=== PATIENT | female | born 1930 | race African-American/Black ===

== ENCOUNTER 2016-08-22 17:35 | Emergency (ER) | payer OTHER ==
[~2016-08-22] VITALS: Ht 157.5 cm; Wt 65.0 kg
[~2016-08-22 17:35] MED LIST: ASPI325T PO; CLOP75TA PO; FURO20TA PO; LOVA20TA PO; MULT1TAB84 PO; PANT40TA3 PO; PERC5TAB12 PO; POTA-243 PO; TRAM50TA PO; TRIA37.53 PO; VERA1TAB17 PO; VITA1000 PO
[2016-08-22 17:38] VITALS: BP 172/74; PULSE 75; RESP 14; TEMP 97.9; O2SAT 91
--- NOTE | 2016-08-22 19:35 | PD ---
HPI Chief Complaint: Pain: Acute or Chronic Time Seen by Provider: 19:35 Travel History International Travel<30 days: No Contact w/Intl Traveler<30days: No Traveled to known affect area: No History of Present Illness HPI 86 year-old female's history of CAD, hypertension, diabetes, left lower extremity femoropopliteal bypass, presents to emergency department for evaluation of left lower extremity pain. Patient states the leg has been swelling since the procedure but recently has gotten worse, warm, and painful. States that she contacted her surgeon who recommended placing an Marcus wrap. Patient states that it has not helped with the pain. She denies any fever states that she has felt chilled. No nausea, vomiting, diarrhea. No chest or tightness. She has no other symptoms to report. PFSH Past Medical History Hx Anticoagulant Therapy: Yes (WARFARIN) Cancer: No Coronary Artery Disease: Yes Diabetes: Yes (BORDERLINE DIABETIC) Diminished Hearing: No Endocrine: Yes (BORDERLINE DIABETIC) Gastrointestinal Disorders: Yes (GERD) Genitourinary: Yes (OVERACTIVE BLADDER) Hepatitis: No Hypertension: Yes Immune Disorder: No Psychiatric: No Respiratory: Yes (COPD) Menopausal: Yes Past Surgical History Abdominal Surgery: Yes AICD: No Cardiac Surgery: Yes (FEM POP, LLE BYPASS) Ear Surgery: No Endocrine Surgery: No Eye Surgery: Yes (CATARACT LEFT EYE) Genitourinary Surgery: No Gynecologic Surgery: Yes (HYSTERECTOMY) Joint Replacement: No Oral Surgery: No Pacemaker: No Social History Alcohol Use: No Tobacco Use: No Substance Use: No Allergies-Medications (Allergen,Severity, Reaction): Coded Allergies: No Known Allergies (Unverified , 08/22/16) Reported Meds & Prescriptions Reported Meds & Active Scripts Active Percocet (Oxycodone-Acetaminophen) 5-325 mg Tab 1 Tab PO Q6H PRN Reported Clopidogrel (Clopidogrel Bisulfate) 75 Mg Tab 75 Mg PO DAILY Pantoprazole (Pantoprazole Sodium) 40 Mg Tab 40 Mg PO DAILY Vitamin D-1000 (Cholecalciferol) 1,000 Unit Tab 1,000 Units PO DAILY Multivitamin Adults (Multiple Vitamins W/ Minerals) 1 Tab 1 Tab PO DAILY Aspirin 325 Mg Tab 325 Mg PO DAILY Percocet (Oxycodone-Acetaminophen) 5-325 mg Tab 1 Tab PO Q4H PRN Lovastatin 20 Mg Tab 20 Mg PO DAILY Furosemide 20 Mg Tab 20 Mg PO DAILY Triamterene-Hydrochlorothiazide 37.5-25 Mg Cap 1 Cap PO DAILY Klor-Con 10 (Potassium Chloride) 10 Meq Tab 10 Meq PO DAILY Verapamil ER 24 HR (Verapamil HCl) 240 Mg Tab 240 Mg PO HS Tramadol (Tramadol HCl) 50 Mg Tab 50 Mg PO BID PRN Review of Systems Except as stated in HPI: all other systems reviewed are Neg Physical Exam Narrative GENERAL: Well-nourished female patient, in no acute distress SKIN: Warm and dry. HEAD: Atraumatic. Normocephalic. EYES: Pupils equal and round. No scleral icterus. No injection or drainage. ENT: No nasal bleeding or discharge. Mucous membranes pink and moist. NECK: Trachea midline. No JVD. CARDIOVASCULAR: Regular rate and rhythm. No murmur appreciated. RESPIRATORY: No accessory muscle use. Clear to auscultation. Breath sounds equal bilaterally. GASTROINTESTINAL: Abdomen soft, non-tender, nondistended. Hepatic and splenic margins not palpable. MUSCULOSKELETAL: No obvious deformities. No clubbing. No cyanosis. Marcus wrap in place from proximal to the left knee all the way down to the distal foot. Toes are cool to touch of the left lower extremity. Distal pulses palpable. NEUROLOGICAL: Awake and alert. No obvious cranial nerve deficits. Motor grossly within normal limits. Normal speech. PSYCHIATRIC: Appropriate mood and affect; insight and judgment normal. Data Data Last Documented VS Vital Signs Date Time Temp Pulse Resp B/P Pulse Ox O2 Delivery O2 Flow Rate FiO2 08/22/16 22:24 76 18 137/81 95 Room Air 08/22/16 17:38 97.9 Orders Coag Profile (08/22/16 19:33) Complete Blood Count With Diff (08/22/16 19:33) Basic Metabolic Panel (Bmp) (08/22/16 19:33) Labs Laboratory Tests Test 08/22/16 19:35 White Blood Count 9.8 TH/MM3 Red Blood Count 4.57 MIL/MM3 Hemoglobin 12.1 GM/DL Hematocrit 37.7 % Mean Corpuscular Volume 82.4 FL Mean Corpuscular Hemoglobin 26.6 PG Mean Corpuscular Hemoglobin 32.2 % Concent Red Cell Distribution Width 14.8 % Platelet Count 500 TH/MM3 Mean Platelet Volume 7.5 FL Neutrophils (%) (Auto) 65.5 % Lymphocytes (%) (Auto) 23.6 % Monocytes (%) (Auto) 8.5 % Eosinophils (%) (Auto) 1.9 % Basophils (%) (Auto) 0.5 % Neutrophils # (Auto) 6.4 TH/MM3 Lymphocytes # (Auto) 2.3 TH/MM3 Monocytes # (Auto) 0.8 TH/MM3 Eosinophils # (Auto) 0.2 TH/MM3 Basophils # (Auto) 0.0 TH/MM3 CBC Comment DIFF FINAL Differential Comment Prothrombin Time 31.2 SEC Prothromb Time International 2.7 RATIO Ratio Activated Partial 47.2 SEC Thromboplast Time Sodium Level 137 MEQ/L Potassium Level 3.3 MEQ/L Chloride Level 99 MEQ/L Carbon Dioxide Level 25.4 MEQ/L Anion Gap 13 MEQ/L Blood Urea Nitrogen 32 MG/DL Creatinine 1.98 MG/DL Estimat Glomerular Filtration 29 ML/MIN Rate Random Glucose 131 MG/DL Calcium Level 10.0 MG/DL MDM Medical Decision Making Medical Screen Exam Complete: Yes Emergency Medical Condition: Yes Medical Record Reviewed: Yes Differential Diagnosis DVT versus PAD versus occlusive disease versus cellulitis versus lymphedema Narrative Course 86 year-old female presents to the emergency department for evaluation. Patient appears without distress. Marcus wrap is in place on the left lower extremity. Workup was initiated in triage, once a medical bed becomes available , patient will be transferred and care assumed by the provider. Condition: Stable Mena Loya Aug 22, 2016 19:35
[2016-08-22 20:15] LABS: AUTOMATED NEUTROPHIL # 6.4 TH/MM3 (1.8-7.7); BASOPHIL % 0.5 % (0.0-2.0); EOSINOPHIL # 0.2 TH/MM3 (0-0.4); EOSINOPHIL % 1.9 % (0.0-4.0); HEMATOCRIT 37.7 % (35.0-46.0); HEMO FLAGS DIFF FINAL; LYMPH % 23.6 % (9.0-44.0); LYMPHOCYTE # 2.3 TH/MM3 (1.0-4.8); MEAN CELL VOLUME 82.4 FL (80.0-100.0); MEAN CORPUSCULAR HEMOGLOBIN 26.6 PG (27.0-34.0); MEAN CORPUSCULAR HGB CONC 32.2 % (32.0-36.0); MONO % 8.5 % (0.0-8.0); NEUT % 65.5 % (16.0-70.0); PLATELET COUNT 500 TH/MM3 (150-450); RED BLOOD COUNT 4.57 MIL/MM3 (4.00-5.30); RED CELL DISTRIBUTION WIDTH 14.8 % (11.6-17.2); WHITE BLOOD COUNT 9.8 TH/MM3 (4.0-11.0)
[2016-08-22 20:39] LABS: APTT (PATIENT) 47.2 SEC (24.3-30.1); INTERNATIONAL NORMALIZED RATIO 2.7 RATIO; PROTHROMBIN TIME - PATIENT 31.2 SEC (9.8-11.6)
[2016-08-22 20:40] LABS: BICARBONATE 25.4 MEQ/L (21.0-32.0); POTASSIUM 3.3 MEQ/L (3.5-5.1)
[2016-08-22 22:24] VITALS: BP 137/81; PULSE 76; RESP 18; O2SAT 95
--- NOTE | 2016-08-22 22:38 | PD ---
Physical Exam Narrative Patient initially was seen in triage. Please see previous providers secondary for full H&P. Briefly this is a patient comes back to emergency department complaining of increasing pain in her left lower extremity over the past 10 days. Patient states she was seen in the emergency department previously for same was found out that her femoropopliteal bypass rejected. Patient states she was fine after being discharged from the ER previously however over the past 10 days has been having increased pain and swelling from her knee down. Patient states that she only takes approximately a half for tramadol time as well as half a Percocet when needed. Patient is also been using Marcus wrap as instructed by her vascular surgeon that help some. Patient denies any known trauma. Pain is worse with palpation and walking. GENERAL: Well-developed, overly nourished, in no acute distress, and non-ill appearing. SKIN: Warm and dry. Well-healed surgical site wound noted left lower extremity medial aspect of the calf shows no signs of infection. It is afebrile, nontender, without crepitus. HEAD: Atraumatic. Normocephalic. EYES: Pupils equal and round. EOMI. No scleral icterus. No injection or drainage. ENT: No nasal bleeding or discharge. Mucous membranes pink and moist. NECK: Trachea midline. Supple. No nuclear rigidity. CARDIOVASCULAR: Capillary refill less than 2 seconds bilateral lower extremities. 1+ pulses left dorsal and 2+ right dorsal pulses. RESPIRATORY: No accessory muscle use. No respiratory distress. MUSCULOSKELETAL: No obvious deformities. No clubbing. No cyanosis. 1+ nonpitting edema left lower extremity distal to the knee. Full range of motion. Patient reports tenderness to palpation left lower extremity. Patient' s strength is 5 out of 5 and equal bilateral lower extremities dorsal and plantar flexion. Sensation intact over first web space bilateral lower extremities. NEUROLOGICAL: Awake and alert. No obvious cranial nerve deficits. Motor grossly within normal limits. Normal speech. PSYCHIATRIC: Appropriate mood and affect; insight and judgment normal. Data Data Last Documented VS Vital Signs Date Time Temp Pulse Resp B/P Pulse Ox O2 Delivery O2 Flow Rate FiO2 08/22/16 22:24 76 18 137/81 95 Room Air 08/22/16 17:38 97.9 Orders Coag Profile (08/22/16 19:33) Complete Blood Count With Diff (08/22/16 19:33) Basic Metabolic Panel (Bmp) (08/22/16 19:33) Labs Laboratory Tests Test 08/22/16 19:35 White Blood Count 9.8 TH/MM3 Red Blood Count 4.57 MIL/MM3 Hemoglobin 12.1 GM/DL Hematocrit 37.7 % Mean Corpuscular Volume 82.4 FL Mean Corpuscular Hemoglobin 26.6 PG Mean Corpuscular Hemoglobin 32.2 % Concent Red Cell Distribution Width 14.8 % Platelet Count 500 TH/MM3 Mean Platelet Volume 7.5 FL Neutrophils (%) (Auto) 65.5 % Lymphocytes (%) (Auto) 23.6 % Monocytes (%) (Auto) 8.5 % Eosinophils (%) (Auto) 1.9 % Basophils (%) (Auto) 0.5 % Neutrophils # (Auto) 6.4 TH/MM3 Lymphocytes # (Auto) 2.3 TH/MM3 Monocytes # (Auto) 0.8 TH/MM3 Eosinophils # (Auto) 0.2 TH/MM3 Basophils # (Auto) 0.0 TH/MM3 CBC Comment DIFF FINAL Differential Comment Prothrombin Time 31.2 SEC Prothromb Time International 2.7 RATIO Ratio Activated Partial 47.2 SEC Thromboplast Time Sodium Level 137 MEQ/L Potassium Level 3.3 MEQ/L Chloride Level 99 MEQ/L Carbon Dioxide Level 25.4 MEQ/L Anion Gap 13 MEQ/L Blood Urea Nitrogen 32 MG/DL Creatinine 1.98 MG/DL Estimat Glomerular Filtration 29 ML/MIN Rate Random Glucose 131 MG/DL Calcium Level 10.0 MG/DL [facility] Supervised Visit with RUDI: No Narrative Course Patient seen and examined. Laboratory studies were reviewed. There is no signs of infection. Patient's white blood cell count is 9.8. Is therapeutic on her Coumadin as her INR is 2.7. Discussed case with vascular surgeon who recommends outpatient follow-up. Discussed patient with Dr. Schulz who is in agreement with plan of care and disposition. Discussed vascular surgeon's recommendations with patient, who is agreeable for outpatient follow-up and adjustment her pain medication. Patient reports she has a appointment with vascular surgeon on Sunday but will call tomorrow to try to get in sooner. All questions were answered. Patient in no obvious distress upon re-evaluation. All pertinent laboratory result(s) discussed with patient/family. Patient was asked if they wanted to speak to my attending, which the patient did not wish to do at this time. Any questions/concerns in reference to patient diagnosis/condition discussed and clarified prior to patient's discharge. Reinforced sheer importance of close follow up with patient's vascular surgeon. Instructed patient to return to ED immediately, if symptoms return/worsen. Pt showed understanding of above instructions. Further instructions and recommendations were detailed in discharge paperwork. Pt left without difficulty out of ED at discharge. Physician Communication Physician Communication [id number] Guerra, recommends adjusting patient pain medication and follow-up as an outpatient. Does not feel additional testing is necessary in the emergency department at this time. Diagnosis Primary Impression: PAIN IN LEFT LEG Additional Impression: Vascular graft occlusion Qualified Code: T82.898D - Vascular graft occlusion, subsequent encounter Referrals: Sebastien Arizmendi MD Patient Instructions: General Instructions Additional Instruction: Follow-up with your vascular surgeon this week. Take your pain medication and all medication as prescribed. Return to the emergency department if symptoms get worse. Disposition: 01 DISCHARGE HOME Condition: Stable Kwabena Roa Aug 22, 2016 22:38
== END 2016-08-22 22:54 | disposition home or self-care (01) ==
LOC: NEPC 17:35
DX: M79.605 Pain in left leg (principal); T82.392A Other mechanical complication of femoral arterial graft (bypass), initial encounter
CPT/HCPCS: 80048; 85025; 85610; 85730; 99283